=== PATIENT | female | born 1955 | race Caucasian/White ===

== ENCOUNTER 2018-09-09 12:06 | Day surgery (SDC) | payer OTHER ==
[~2018-09-09] VITALS: Ht 172.7 cm; Wt 133.6 kg
[~2018-09-09 12:06] MED LIST: CYMBALTA 60MG60 MG PO; ENULOSE10 GM/151 PO; INDERAL LA 80MG80 MG PO; PROTONIX 40MG T40 MG PO; ZYRTEC 10MG10 MG PO
[2018-09-09 12:54] VITALS: BP 125/75; PULSE 59; TEMP 96.8
[2018-09-09] MEDS ORDERED: XIFAXAN550 MG PO (13:04)
[2018-09-09] MEDS ORDERED: SYNTHROID0.137 MG PO (13:05)
[2018-09-09] MEDS ORDERED: VALTREX1 GM PO (13:06)
[2018-09-09] MEDS ORDERED: ASPIRIN 81M81 MG/TA2 PO (13:07)
[2018-09-09] MEDS ORDERED: KRILL OIL 5001 EACH PO (13:08)
[2018-09-09] MEDS ORDERED: PROAIR HFA0.09 MG/AC IH (13:08)
[2018-09-09] MEDS ORDERED: MAGNESIUM500 MG PO (13:09)
[2018-09-09] MEDS ORDERED: OSCAL 500 TAB500 MG PO (13:10)
[2018-09-09] MEDS ORDERED: D3 PO (13:14)
[2018-09-09] MEDS ORDERED: PRILOSEC 20MG20 MG PO (13:53)
[2018-09-09 14:00] VITALS: BP 120/76; PULSE 59; TEMP 97.2
[2018-09-09 14:15] VITALS: BP 114/69; PULSE 57
[2018-09-09 14:30] VITALS: BP 124/62; PULSE 57
[2018-09-09 14:45] VITALS: BP 117/67; PULSE 57
== END 2018-09-09 15:00 | disposition home or self-care (01) ==
LOC: SDCO 12:06
DX: K29.30 Chronic superficial gastritis without bleeding (principal); K25.7 Chronic gastric ulcer without hemorrhage or perforation; K75.81 Nonalcoholic steatohepatitis (NASH); K74.60 Unspecified cirrhosis of liver; F32.9 Major depressive disorder, single episode, unspecified; E66.01 Morbid (severe) obesity due to excess calories; Z90.10 Acquired absence of unspecified breast and nipple; Z90.710 Acquired absence of both cervix and uterus; Z79.82 Long term (current) use of aspirin; Z88.0 Allergy status to penicillin; Z85.3 Personal history of malignant neoplasm of breast
CPT/HCPCS: J2704; J7030